=== PATIENT | female | born 1995 | race Hispanic/Latino ===

== ENCOUNTER → 2019-08-27 | Outpatient (CLI) | payer OTHER ==
--- NOTE | 2019-08-28 10:42 | Diagnostic Imaging Report ---
#[id number] - [facility] ULTRASOUND OF THE LEFT BREAST : 08/27/2019 No prior exams were available for comparison. Real-time ultrasound was performed on the left breast. There are no solid or cystic masses identified. IMPRESSION: BENIGN There is no sonographic evidence of malignancy. SHAYY CUEVAS M.D. 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 letter sent: Normal Exam Ultrasound BI-RADS: 2 Benign
--- NOTE | 2019-08-28 10:42 | Diagnostic Imaging Report ---
#[id number] - [facility] : 08/27/2019 No prior exams were available for comparison. Real-time ultrasound was performed on the right breast. There are no solid or cystic masses identified. IMPRESSION: BENIGN There is no sonographic evidence of malignancy. SHAYY CUEVAS M.D. ct/penrad:08/27/2019 11:09:04 Payment Manager: [facility], [facility] letter sent: Normal Exam Ultrasound BI-RADS: 2 Benign
== END ==
LOC: MAMMO 09:07
PROVIDERS: ATTEND Specialist
DX: N64.4 Mastodynia (principal)